=== PATIENT | male | born 1935 | race Caucasian/White ===

== ENCOUNTER 2023-05-22 06:24 | Day surgery (SDC) | payer OTHER ==
[~2023-05-22] VITALS: Ht 185 cm; Wt 86.7 kg
[2023-05-22] VITALS (19 sets, daily range): BP systolic 81–142; BP diastolic 42–81
[~2023-05-22 06:24] MED LIST: COQ1050 MG PO; Crestor20 MG PO; FINA5 PO; LOSA50 PO; METO100ER PO; TAMS.4ER PO; Vitamin B-12100 MCG PO
[2023-05-22] MEDS ORDERED: ASPI81CH PO (07:18)
--- NOTE | 2023-05-22 07:37 | NUR ---
Ambulatory in Day Surgery. Surgical site prepped with 2% Chlorhexidine cloth wipe. History, Chart, Medications and Allergies reviewed before start of procedure. Lungs clear T/O to Auscultation. Pre-Op teaching done. Pt verbalizes understanding. Patient confirms NPO status and agrees with scheduled surgery. Patient reports completing Chlorhexadine shower X2 prior to admission to hospital.
--- NOTE | 2023-05-22 14:05 | NUR ---
PT ARRIVED TO THE ROOM AT APPROXIMATELY 1015. PAIN MANAGED AT TIME OF ARRIVAL. SPINAL ANESTHESIA STILL IN EFFECT. FAMILY AT BEDSIDE FOR SUPPORT. PT EDUCTED TO USE CALL LIGHT. PT EDUCATED TO USE INCENTIVE SPIROMETER AND HE DEMONSTRATED USE. PT RESTING IN BED WITH CALL LIGHT IN REACH.
--- NOTE | 2023-05-22 19:54 | NUR ---
SHIFT SUMMARY PT IS POD#0 FROM L TKA WITH DR. TARANGO. PAIN MANAGED WITH PO PAIN MEDICATION. PT HAS BEEN OOB AND WORKED WITH THERAPY. PT HAS HAD URINARY RETENTION POST OP, PT DECLINED STRAIGHT CATH FOR BLADDER SCAN GREATER THAN 600ML. PT WAS ASSISTED TO THE BATHROOM AND VOIDED 250 ML. PT TOLERATING PO. REPORT GIVEN TO BALAJI BIGGS.
[2023-05-23 04:01] VITALS: BP 102/56
[2023-05-23 05:25] LABS: BASOPHILS ABSOLUTE AUTO 0.03 K/mm3 (0.00-0.23); BASOPHILS PERCENT AUTO 0 % (0-2); EOSINOPHILS ABSOLUTE AUTO 0.06 K/mm3 (0.00-0.68); EOSINOPHILS PERCENT AUTO 1 % (0-6); Hematocrit 34.8 % (37.0-53.0); IMMATURE GRAN ABSOLUTE AUTO 0.04 K/mm3 (0.00-0.10); IMMATURE GRAN PERCENT AUTO 0 % (0-1); LYMPHOCYTES ABSOLUTE AUTO 0.96 K/mm3 (0.84-5.20); LYMPHOCYTES PERCENT AUTO 10 % (21-46); MONOCYTES ABSOLUTE AUTO 0.72 K/mm3 (0.16-1.47); MONOCYTES PERCENT AUTO 8 % (4-13); Mean Corpuscular HGB 31.4 pg (26.0-34.0); Mean Corpuscular HGB Conc 34.5 g/dL (31.5-36.5); Mean Corpuscular Volume 91 fL (80-100); Mean Platelet Volume 10.1 fL (9.1-12.4); NEUTROPHILS PERCENT AUTO 81 % (41-73); Platelet Count 111 K/mm3 (150-400); RDW Standard Deviation 47.3 fL (35.1-46.3); Red Blood Cell Count 3.82 M/mm3 (4.30-5.90); White Blood Cell Count 9.41 K/mm3 (4.00-11.30)
[2023-05-23 05:46] LABS: Bun/Creatinine Ratio 17.5 (12.0-20.0); Calcium, Blood 8.3 mg/dL (8.5-10.1); Creatinine, Blood 1.71 mg/dL (0.60-1.20); Magnesium, Blood 1.8 mg/dL (1.6-2.4); Potassium, Blood 4.5 mmol/L (3.5-5.5)
--- NOTE | 2023-05-23 07:19 | NUR ---
SHIFT SUMMARY POD 1 L TKA. AQUACEL C/D/I, POLAR CESARIO IN PLACE. A&OX4 VERY PLEASANT AND COOPERATIVE.PT AMB TO BATHROOM, TOLERATED WELL AND STEADY. DURING NIGHT, PT STANDS AT BEDSIDE TO USE URINAL. NO ACUTE CHANGES THIS SHIFT. PLANS FOR DISCHARGE TO HOME TODAY.
[2023-05-23 07:34] VITALS: BP 116/53
[2023-05-23] MEDS ORDERED: OXYC5 PO (10:05)
[2023-05-23] MEDS ORDERED: ACET500 PO (10:05)
--- NOTE | 2023-05-23 10:30 | NUR ---
DISCHARGE PT HAS CLEARED THERAPY. PAIN WELL CONTROLLED. EATING, DRINKING, & VOIDING WELL. JUAN DAVID POLAR PACK SENT w/ PT. ESCORTED OUT VIA W/C. HAS PLANS SET FOR SON & TO HELP AT HOME.
== END 2023-05-23 10:30 | disposition home or self-care (01) ==
LOC: ORSCMMR 06:24 → ORD 07:30 → ORSCMMR 07:30 → SURS 10:57 → ORSCMMR 05-23 10:30
PROVIDERS: Orthopaedic Surgery
PROC: 0SRD0JA Replacement of Left Knee Joint with Synthetic Substitute, Uncemented, Open Approach (ICD-10-PCS; principal; 2023-05-22 07:30)
DX: M17.12 Unilateral primary osteoarthritis, left knee (principal); I12.9 Hypertensive chronic kidney disease with stage 1 through stage 4 chronic kidney disease, or unspecified chronic kidney disease; N18.9 Chronic kidney disease, unspecified; E78.5 Hyperlipidemia, unspecified; N40.0 Benign prostatic hyperplasia without lower urinary tract symptoms; I25.10 Atherosclerotic heart disease of native coronary artery without angina pectoris; Z87.891 Personal history of nicotine dependence; Z79.899 Other long term (current) drug therapy
CPT/HCPCS: 36415; 73560-LT; 80048; 83735; 85025; 97110; 97162; A9270; C1776; J0171; J0690; J0735; J1100; J1885; J2250; J2371; J2405; J2704; J2795; J3010; J7120

== ENCOUNTER → 2023-07-07 | Outpatient (CLI) | payer MEDICARE ==
[~2023-07-07] MED LIST changes: +ACET500 PO; +ASPI81CH PO; +OXYC5 PO
[2023-07-07 15:50] LABS: BASOPHILS ABSOLUTE AUTO 0.06 K/mm3 (0.00-0.23); BASOPHILS PERCENT AUTO 1 % (0-2); EOSINOPHILS ABSOLUTE AUTO 0.19 K/mm3 (0.00-0.68); EOSINOPHILS PERCENT AUTO 2 % (0-6); Hematocrit 45.8 % (37.0-53.0); Hemoglobin 15.1 g/dL (13.5-17.5); IMMATURE GRAN ABSOLUTE AUTO 0.02 K/mm3 (0.00-0.10); IMMATURE GRAN PERCENT AUTO 0 % (0-1); LYMPHOCYTES ABSOLUTE AUTO 0.92 K/mm3 (0.84-5.20); LYMPHOCYTES PERCENT AUTO 11 % (21-46); MONOCYTES ABSOLUTE AUTO 0.48 K/mm3 (0.16-1.47); MONOCYTES PERCENT AUTO 6 % (4-13); Mean Corpuscular HGB 30.6 pg (26.0-34.0); Mean Corpuscular Volume 93 fL (80-100); Mean Platelet Volume 10.4 fL (9.1-12.4); NEUTROPHILS PERCENT AUTO 81 % (41-73); Platelet Count 172 K/mm3 (150-400); RDW Coefficient Variation 15.1 % (11.7-14.2); RDW Standard Deviation 51.8 fL (35.1-46.3); Red Blood Cell Count 4.93 M/mm3 (4.30-5.90); White Blood Cell Count 8.77 K/mm3 (4.00-11.30)
== END ==
LOC: LAB 14:33 → LAB SHORT 14:33
PROVIDERS: Student in an Organized Health Care Education/Training Program
DX: M10.9 Gout, unspecified (principal); M00.9 Pyogenic arthritis, unspecified
CPT/HCPCS: 85025; 85651; 86140; 87040

== ENCOUNTER → 2023-09-20 | Outpatient (CLI) | payer MEDICARE, OTHER | LOC: PLD 07:10 → LAB SHORT 07:10 | DX: D48.5 Neoplasm of uncertain behavior of skin (principal) | CPT/HCPCS: 88312 ==

== ENCOUNTER 2024-02-26 05:32 | Inpatient (IN) | payer MEDICARE, OTHER ==
[~2024-02-26] VITALS: Ht 190.5 cm; Wt 87.1 kg
[~2024-02-26 05:32] MED LIST changes: -ASPI81CH PO; +ASPIR 8181 MG PO
[2024-02-26 06:56] LABS: BASOPHILS ABSOLUTE AUTO 0.07 K/mm3 (0.00-0.23); BASOPHILS PERCENT AUTO 1 % (0-2); EOSINOPHILS ABSOLUTE AUTO 0.18 K/mm3 (0.00-0.68); EOSINOPHILS PERCENT AUTO 2 % (0-6); Hematocrit 37.8 % (37.0-53.0); Hemoglobin 12.6 g/dL (13.5-17.5); IMMATURE GRAN PERCENT AUTO 1 % (0-1); LYMPHOCYTES ABSOLUTE AUTO 0.74 K/mm3 (0.84-5.20); LYMPHOCYTES PERCENT AUTO 7 % (21-46); MONOCYTES ABSOLUTE AUTO 0.76 K/mm3 (0.16-1.47); MONOCYTES PERCENT AUTO 7 % (4-13); Mean Corpuscular HGB 29.5 pg (26.0-34.0); Mean Corpuscular HGB Conc 33.3 g/dL (31.5-36.5); Mean Corpuscular Volume 89 fL (80-100); Mean Platelet Volume 9.4 fL (9.1-12.4); NEUTROPHILS ABSOLUTE AUTO 9.37 K/mm3 (1.96-9.15); NEUTROPHILS PERCENT AUTO 84 % (41-73); Platelet Count 194 K/mm3 (150-400); RDW Coefficient Variation 15.4 % (11.7-14.2); RDW Standard Deviation 50.2 fL (35.1-46.3); Red Blood Cell Count 4.27 M/mm3 (4.30-5.90); White Blood Cell Count 11.22 K/mm3 (4.00-11.30)
[2024-02-26 07:14] LABS: Source, Urine Foley catheter
[2024-02-26 07:15] LABS: Albumin, Blood 2.6 g/dL (3.4-5.0); Albumin/Globulin Ratio 0.6 (0.8-1.8); Bilirubin, Total 0.8 mg/dL (0.1-1.0); Calcium, Blood 8.6 mg/dL (8.5-10.1); Creatinine, Blood 1.45 mg/dL (0.60-1.20); Globulin, Blood 4.1 g/dL (2.2-4.0); Potassium, Blood 4.1 mmol/L (3.5-5.5); Total Protein, Blood 6.7 g/dL (6.4-8.2)
[2024-02-26 07:18] LABS: Bilirubin, Urine Neg (Neg); Blood, Urine 4+ (Neg); Glucose Qualitative, Urine Neg (Neg); Ketones, Urine Neg (Neg); Leukocyte Esterase, Urine Neg (Neg); Nitrite, Urine Neg (Neg); Protein, Urine 1+ (Neg); Specific Gravity, Urine 1.015 (1.003-1.022); Urobilinogen, Urine 1+ (Normal)
[2024-02-26 07:31] LABS: Appearance, Urine Hazy (Clear); Color, Urine Yellow (P-Yellow)
[2024-02-26 07:32] LABS: Bacteria Not Seen /hpf; Squamous Epithelial Cells Not Seen /hpf (Few); White Blood Cells, Urine Not Seen /hpf (0-5)
[2024-02-26] MEDS ORDERED: NS 1,000 ML IV SCH (07:45)
[2024-02-26] MEDS ORDERED: Metoprolol Succinate 50 MG TABCR PO ONE (08:25)
[2024-02-26] MEDS ORDERED: Metoprolol Tartrate 1 MG/ML 5 ML VIAL IV ONE ×4 (09:10→10:45)
[2024-02-26] MEDS ORDERED: dilTIAZem HCL 125 MG in Dextrose 5% 100 ML IV SCH (11:25)
[2024-02-26] MEDS ORDERED: Diltiazem HCl 5 MG / ML 5ML Vial IV ONE (11:25)
[2024-02-26] MEDS ORDERED: Acetaminophen 325 MG TABLET PO PRN (11:55)
[2024-02-26] MEDS ORDERED: Ondansetron 4 MG TAB PO PRN (11:55)
[2024-02-26 13:38] VITALS: BP 133/68
[2024-02-26] MEDS ORDERED: ALLO300 PO (13:40)
[2024-02-26] MEDS ORDERED: FEBU40TA PO (13:43)
[2024-02-26] MEDS ORDERED: ECONAZOLE NITRA30 GM TOP (13:44)
[2024-02-26] MEDS ORDERED: ROSUVASTATIN CA20 MG PO (13:49)
[2024-02-26] MEDS ORDERED: Co Q-10300 MG PO (13:51)
[2024-02-26 16:04] VITALS: BP 117/68
--- NOTE | 2024-02-26 18:31 | NUR ---
SHIFT SUMMARY PATIENT ADMITTED TO PCU THIS AFTERNOON. PATIENT ALERT AND ORIENTED x4, ABLE TO MAKE NEEDS KNOWN TO STAFF. PATIENT ON TELE, READING AFIB 80-100s. CARDIZEM GTT INFUSING PER EMAR, SEE FLOWSHEET FOR TITRATIONS. PER HOSPITALIST, PATIENT TO GET 2100 DOSE OF PO METOPROLOL EARLY. PATIENT WITH BIGGS IN PLACE DRAINING YELLOW/MAROON URINE WITH SOME CLOTS. PATIENT REPORTED DIARRHEA AT HOME, PATIENT HAS <10mls OF DIARRHEA THIS SHIFT. FAMILY AT BEDSIDE THROUGHOUT THE DAY. NO OTHER CHANGES THIS SHIFT, WILL REPORT TO DAY SHIFT RN.
[2024-02-26 19:34] VITALS: BP 118/67
[2024-02-26] MEDS ORDERED: Metoprolol Succinate 50 MG TABCR PO SCH (21:00)
[2024-02-26 23:25] VITALS: BP 104/67
[2024-02-27 03:52] VITALS: BP 114/63
[2024-02-27 04:12] LABS: BASOPHILS ABSOLUTE AUTO 0.07 K/mm3 (0.00-0.23); BASOPHILS PERCENT AUTO 1 % (0-2); EOSINOPHILS ABSOLUTE AUTO 0.26 K/mm3 (0.00-0.68); EOSINOPHILS PERCENT AUTO 3 % (0-6); Hematocrit 34.7 % (37.0-53.0); Hemoglobin 11.7 g/dL (13.5-17.5); IMMATURE GRAN ABSOLUTE AUTO 0.04 K/mm3 (0.00-0.10); IMMATURE GRAN PERCENT AUTO 1 % (0-1); LYMPHOCYTES ABSOLUTE AUTO 0.84 K/mm3 (0.84-5.20); LYMPHOCYTES PERCENT AUTO 10 % (21-46); MONOCYTES ABSOLUTE AUTO 0.68 K/mm3 (0.16-1.47); MONOCYTES PERCENT AUTO 8 % (4-13); Mean Corpuscular HGB 29.9 pg (26.0-34.0); Mean Corpuscular HGB Conc 33.7 g/dL (31.5-36.5); Mean Corpuscular Volume 89 fL (80-100); Mean Platelet Volume 9.7 fL (9.1-12.4); NEUTROPHILS ABSOLUTE AUTO 6.75 K/mm3 (1.96-9.15); NEUTROPHILS PERCENT AUTO 78 % (41-73); Platelet Count 201 K/mm3 (150-400); RDW Coefficient Variation 15.3 % (11.7-14.2); RDW Standard Deviation 49.7 fL (35.1-46.3); Red Blood Cell Count 3.91 M/mm3 (4.30-5.90); White Blood Cell Count 8.64 K/mm3 (4.00-11.30)
[2024-02-27 04:38] LABS: Albumin, Blood 2.2 g/dL (3.4-5.0); Albumin/Globulin Ratio 0.6 (0.8-1.8); Bilirubin, Total 0.7 mg/dL (0.1-1.0); Bun/Creatinine Ratio 16.7 (12.0-20.0); Creatinine, Blood 1.44 mg/dL (0.60-1.20); Globulin, Blood 3.5 g/dL (2.2-4.0); Magnesium, Blood 1.7 mg/dL (1.6-2.4); Potassium, Blood 4.3 mmol/L (3.5-5.5); Total Protein, Blood 5.7 g/dL (6.4-8.2)
--- NOTE | 2024-02-27 06:15 | NUR ---
SHIFT SUMMARY PATIENT ALERT AND ORIENTED X4. HAD NO COMPLAINTS OF PAIN OR SHORTNESS OF BREATH. CURRENTLY ON ROOM AIR WITH SPO2 >90%. VITAL SIGNS STABLE, AFIB 90'S ON TELE. NO ACUTE ISSUES NOTED OVERNIGHT. WILL CONTINUE TO MONITOR. CALL LIGHT WITHIN REACH.
--- NOTE | 2024-02-27 07:30 | NUR ---
ASSUMED CARE: REPORT RECEIVED FROM DIAN HUDSON. ASSUMED CARE OF THIS PT AT APPROX 0700. ON ASSESSMENT, THE PT IS AWAKE, A&O TO ALL. EUCEDA, HAS BEEN AMBULATORY IN ROOM PER REPORT. DENIES PAIN, CHEST PRESSURE OR SOB THIS AM. LS CLEAR T/O, PT ON RA W/ O2 SATS > 95%. MONITOR SHOWS AFLUTTER W/ HR 90-110s, BP STABLE. PT STS HAVING SMALL AMNTS DIARRHEA SINCE PRIOR TO ADMISSION, PER PT, THIS IS IMPROVING. BIGGS PATENT/ DRAINING GAUTAM URINE - IN PLACE FOR ACUTE RETENTION AT TIME OF ADMIT. SKIN CONDITION OVERALL INTACT, PT REPOSITIONS SELF PRN FOR COMFORT. WILL CONTINUE TO MONITOR & UPDATE NEEDED.
[2024-02-27 07:31] VITALS: BP 129/82
[2024-02-27] MEDS ORDERED: Enoxaparin 40 MG/0.4 ML SYR SC SCH (09:00)
--- NOTE | 2024-02-27 09:15 | NUR ---
DR PARRISH: PROVIDER HAS BEEN AT BEDSIDE TO EVAL PT THIS AM & PLACED DISCHARGE TO HOME ORDERS. THIS RN HAS CLARIFIED THAT THE PT WILL BE DISCHARGING HOME WITH THE BIGGS CATHETER THAT IS CURRENTLY IN PLACE FOR ACUTE RETENTION R/T BPH.
[2024-02-27] MEDS ORDERED: XARELTO10 M1 PO (09:26)
--- NOTE | 2024-02-27 11:15 | NUR ---
DISCHARGE TO HOME: THIS RN HAS REVIEWED DISCHARGE & INDWELLING URINARY CATHETER CARE INSTRUCTIONS W/ THE PT. HE VERBLIZES HAVING NO ADDITIONAL QUESTIONS AT THIS TIME & STS THAT HE ALREADY HAS A FOLLOW-UP APPOINTMENT SCHEDULED W/ HIS PCP IN THE COMING WEEK. YARED PCT, HAS REMOVED THE PT's PIV & ALL MONITORS. HE HAS BEEN TAKEN OUT VIA WC AT APPROX 1110. ALL BELONGINGS & DISCHARGE PACKET HAVE BEEN TAKEN OUT W/ THE PT AT THAT TIME.
== END 2024-02-27 11:28 | disposition home or self-care (01) | DRG 310 ==
LOC: ER 05:32 → PCU 11:54
PROVIDERS: Student in an Organized Health Care Education/Training Program; ADMIT Internal Medicine
PROC: 0T9B70Z Drainage of Bladder with Drainage Device, Via Natural or Artificial Opening (ICD-10-PCS; principal; 2024-02-26)
DX: I48.91 Unspecified atrial fibrillation (principal); N18.31 Chronic kidney disease, stage 3a; D63.1 Anemia in chronic kidney disease; E55.9 Vitamin D deficiency, unspecified; M10.9 Gout, unspecified; Z87.442 Personal history of urinary calculi; E78.5 Hyperlipidemia, unspecified; I12.9 Hypertensive chronic kidney disease with stage 1 through stage 4 chronic kidney disease, or unspecified chronic kidney disease; N40.1 Benign prostatic hyperplasia with lower urinary tract symptoms; F10.90 Alcohol use, unspecified, uncomplicated; R33.8 Other retention of urine; I25.10 Atherosclerotic heart disease of native coronary artery without angina pectoris; Z98.890 Other specified postprocedural states; Z95.5 Presence of coronary angioplasty implant and graft; Z96.652 Presence of left artificial knee joint; Z87.891 Personal history of nicotine dependence; Z88.0 Allergy status to penicillin; Z79.82 Long term (current) use of aspirin; Z79.899 Other long term (current) drug therapy; M54.50 Low back pain, unspecified; G89.29 Other chronic pain; I25.2 Old myocardial infarction; I27.20 Pulmonary hypertension, unspecified; M19.90 Unspecified osteoarthritis, unspecified site; Z86.79 Personal history of other diseases of the circulatory system; Z87.19 Personal history of other diseases of the digestive system; I45.10 Unspecified right bundle-branch block
CPT/HCPCS: 36415; 51702; 51798; 80053; 81001; 83735; 85025; 93005; 93010; 94762; 96361-59; 96374-59; 96375-59; 96376-59; 99285-25; A9270; J1650; J7030

== ENCOUNTER 2024-03-27 08:08 | Emergency (ER) | payer MEDICARE, OTHER ==
[~2024-03-27] VITALS: Ht 188 cm; Wt 81.7 kg
[~2024-03-27 08:08] MED LIST changes: +ALLO300 PO; +Co Q-10300 MG PO; +ECONAZOLE NITRA30 GM TOP; +FEBU40TA PO; +ROSUVASTATIN CA20 MG PO; +XARELTO10 M1 PO
[2024-03-27 09:26] VITALS: BP 135/77
== END 2024-03-27 09:26 | disposition home or self-care (01) ==
LOC: ER 08:08
DX: R33.9 Retention of urine, unspecified (principal); I12.9 Hypertensive chronic kidney disease with stage 1 through stage 4 chronic kidney disease, or unspecified chronic kidney disease; N18.30 Chronic kidney disease, stage 3 unspecified; I25.2 Old myocardial infarction; E78.5 Hyperlipidemia, unspecified; M19.90 Unspecified osteoarthritis, unspecified site; Z87.891 Personal history of nicotine dependence; Z79.82 Long term (current) use of aspirin; Z79.899 Other long term (current) drug therapy; Z88.0 Allergy status to penicillin
CPT/HCPCS: 51702; 99283-25

== ENCOUNTER 2024-04-28 14:29 | Observation (INO) | payer MEDICARE, OTHER ==
[~2024-04-28] VITALS: Ht 190.5 cm; Wt 79.9 kg
[~2024-04-28 14:29] MED LIST changes: -METO100ER PO
[2024-04-28 14:56] LABS: BASOPHILS ABSOLUTE AUTO 0.07 K/mm3 (0.00-0.23); BASOPHILS PERCENT AUTO 1 % (0-2); EOSINOPHILS ABSOLUTE AUTO 0.22 K/mm3 (0.00-0.68); EOSINOPHILS PERCENT AUTO 4 % (0-6); Hematocrit 41.8 % (37.0-53.0); Hemoglobin 13.5 g/dL (13.5-17.5); IMMATURE GRAN ABSOLUTE AUTO 0.02 K/mm3 (0.00-0.10); IMMATURE GRAN PERCENT AUTO 0 % (0-1); LYMPHOCYTES PERCENT AUTO 18 % (21-46); MONOCYTES ABSOLUTE AUTO 0.44 K/mm3 (0.16-1.47); MONOCYTES PERCENT AUTO 7 % (4-13); Mean Corpuscular HGB 29.2 pg (26.0-34.0); Mean Corpuscular HGB Conc 32.3 g/dL (31.5-36.5); Mean Corpuscular Volume 91 fL (80-100); Mean Platelet Volume 8.9 fL (9.1-12.4); NEUTROPHILS ABSOLUTE AUTO 4.23 K/mm3 (1.96-9.15); NEUTROPHILS PERCENT AUTO 70 % (41-73); Platelet Count 219 K/mm3 (150-400); RDW Coefficient Variation 16.4 % (11.7-14.2); RDW Standard Deviation 54.6 fL (35.1-46.3); Red Blood Cell Count 4.62 M/mm3 (4.30-5.90); White Blood Cell Count 6.08 K/mm3 (4.00-11.30)
[2024-04-28 15:20] LABS: Albumin, Blood 3.5 g/dL (3.4-5.0); Albumin/Globulin Ratio 0.9 (0.8-1.8); Bilirubin, Total 0.7 mg/dL (0.1-1.0); Bun/Creatinine Ratio 15.7 (12.0-20.0); Creatinine, Blood 1.59 mg/dL (0.60-1.20); Globulin, Blood 3.7 g/dL (2.2-4.0); Potassium, Blood 4.7 mmol/L (3.5-5.5); Total Protein, Blood 7.2 g/dL (6.4-8.2)
[2024-04-28] MEDS ORDERED: Furosemide 10 MG / ML 2ML Vial IV ONE (16:50)
[2024-04-28] MEDS ORDERED: Acetaminophen 325 MG TABLET PO PRN (18:20)
[2024-04-28] MEDS ORDERED: CITALOPRAM HBR10 MG PO (19:13)
[2024-04-28 20:15] VITALS: BP 119/61
[2024-04-28] MEDS ORDERED: Apixaban 5 MG Tab PO SCH (21:00)
[2024-04-29 02:39] VITALS: BP 97/61
--- NOTE | 2024-04-29 06:23 | NUR ---
SHIFT SUMMARY PT A&OX4 AND ANSWERS QUESTIONS APPROPRIATELY. PT ARRIVED ON UNIT AROUND 2014 AND AMBULATED INDEPENDENTLY TO THE BED. PT ORIENTED TO ROOM AND UNIT, PT EDUCATION PROVIDED ON HOSPITAL POLICY. PT ON TELEMETRY RUNNING BRADYCARDIC WITH SYMPTOMS. PT NOT CURRENTLY EXPERIENCING SYMPTOMS AND IS RESTING IN BED WITH EYES CLOSED AND RESPIRATIONS EVEN AND UNLABORED. REMAINING VSS. NO ACUTE EVENTS AT THIS TIME. PT REPOSITIONED INDEPENDENTLY. PT LEFT IN A POSITION OF SAFETY WITH FALL PRECAUTIONS IN PLACE AND CALL LIGHT IN REACH.
[2024-04-29 07:38] VITALS: BP 115/51
[2024-04-29] MEDS ORDERED: ERGO400 PO (08:19)
--- NOTE | 2024-04-29 08:26 | NUR ---
DR NEGRETE IN TO SEE PT.
[2024-04-29] MEDS ORDERED: Metoprolol Succinate 50 MG TABCR PO SCH (09:00)
[2024-04-29] MEDS ORDERED: Allopurinol 300 MG Tab PO SCH (09:00)
[2024-04-29] MEDS ORDERED: Losartan Potassium 50 MG Tab PO SCH (09:00)
[2024-04-29] MEDS ORDERED: Aspirin 81 MG TabEC PO SCH (09:00)
[2024-04-29] MEDS ORDERED: Misc. Capsule PO SCH (09:00)
[2024-04-29] MEDS ORDERED: Citalopram Hydrobromide 10 MG TAB PO SCH (09:00)
[2024-04-29 14:47] VITALS: BP 119/66
--- NOTE | 2024-04-29 18:26 | NUR ---
SUMMARY NO ACUTE CHANGES T/O SHIFT. PT'S HR CONTINUES TO BE BEVERLY IN FORTIES. PT REPORTS "FEELS GREAT" BUT TIRES EASILY WITH EXERTION. BIGGS CATH DRAINING YELLOW URINE. INDEPENDENT IN ROOM. CALL LIGHT IN REACH.
[2024-04-29 19:11] VITALS: BP 96/52
[2024-04-29] MEDS ORDERED: Tamsulosin HCl 0.4 MG Cap PO SCH (21:00)
[2024-04-29 21:06] VITALS: BP 106/51
[2024-04-30 03:02] VITALS: BP 96/49
[2024-04-30 05:07] LABS: BASOPHILS ABSOLUTE AUTO 0.06 K/mm3 (0.00-0.23); BASOPHILS PERCENT AUTO 1 % (0-2); EOSINOPHILS ABSOLUTE AUTO 0.27 K/mm3 (0.00-0.68); EOSINOPHILS PERCENT AUTO 4 % (0-6); Hematocrit 35.6 % (37.0-53.0); Hemoglobin 11.3 g/dL (13.5-17.5); IMMATURE GRAN ABSOLUTE AUTO 0.02 K/mm3 (0.00-0.10); IMMATURE GRAN PERCENT AUTO 0 % (0-1); LYMPHOCYTES ABSOLUTE AUTO 1.35 K/mm3 (0.84-5.20); LYMPHOCYTES PERCENT AUTO 22 % (21-46); MONOCYTES ABSOLUTE AUTO 0.35 K/mm3 (0.16-1.47); MONOCYTES PERCENT AUTO 6 % (4-13); Mean Corpuscular HGB 28.7 pg (26.0-34.0); Mean Corpuscular HGB Conc 31.7 g/dL (31.5-36.5); Mean Corpuscular Volume 90 fL (80-100); Mean Platelet Volume 9.4 fL (9.1-12.4); NEUTROPHILS ABSOLUTE AUTO 4.07 K/mm3 (1.96-9.15); NEUTROPHILS PERCENT AUTO 67 % (41-73); Platelet Count 164 K/mm3 (150-400); RDW Coefficient Variation 16.1 % (11.7-14.2); RDW Standard Deviation 53.1 fL (35.1-46.3); Red Blood Cell Count 3.94 M/mm3 (4.30-5.90); White Blood Cell Count 6.12 K/mm3 (4.00-11.30)
[2024-04-30 05:43] LABS: Bun/Creatinine Ratio 17.8 (12.0-20.0); Creatinine, Blood 1.85 mg/dL (0.60-1.20); Potassium, Blood 4.3 mmol/L (3.5-5.5)
--- NOTE | 2024-04-30 06:23 | NUR ---
SHIFT SUMMARY PT A&OX4 AND ANSWERS QUESTIONS APPROPRIATELY. PT HR REMAINS BRADYCARDIC IN THE 40S THROUGHOUT MOST OF THE NIGHT, OCCASIONALY DIPPING TO 39 BEFORE RETURNING TO THE 40S. NO SYMPTOMS OF BRADYCARDIA, PT RESTING PEACEFULLY IN BED WITH EYES CLOSED AND RESPIRATIONS EVEN AND UNLABORED. REMAINING VSS. LOSARTAN HELD DUE TO PT VERBALIZATION OF ONLY TAKING IT DAILY. RX RECONCILIATION SHOWS PT TAKES LOSARTAN DAILY. NO ACUTE EVENTS AT THIS TIME. PT REPOSITIONED INDEPENDENTLY. FALL PRECAUTIONS IN PLACE AND CALL LIGHT IN REACH.
[2024-04-30 07:22] VITALS: BP 120/60
[2024-04-30] MEDS ORDERED: Allopurinol 100 MG Tab PO SCH (09:00)
[2024-04-30 10:49] VITALS: BP 110/56
[2024-04-30 14:22] VITALS: BP 108/50
[2024-04-30] MEDS ORDERED: ALLO100 PO (16:05)
[2024-05-02] MEDS ORDERED: Aspir 8181 MG PO (15:58)
[2024-05-02] MEDS ORDERED: FEBU40TA PO (15:59)
[2024-05-02] MEDS ORDERED: COENZYME Q10100 MG PO (15:59)
== END 2024-04-30 17:02 | disposition home or self-care (01) ==
LOC: ER 14:29 → MEDS 14:30
PROVIDERS: Family Medicine; Physician Assistant; ADMIT Internal Medicine Endocrinology, Diabetes & Metabolism
DX: I48.92 Unspecified atrial flutter (principal); R00.1 Bradycardia, unspecified; I25.10 Atherosclerotic heart disease of native coronary artery without angina pectoris; I12.9 Hypertensive chronic kidney disease with stage 1 through stage 4 chronic kidney disease, or unspecified chronic kidney disease; N18.30 Chronic kidney disease, stage 3 unspecified; R73.03 Prediabetes; N40.0 Benign prostatic hyperplasia without lower urinary tract symptoms; M10.9 Gout, unspecified; I25.2 Old myocardial infarction; R33.9 Retention of urine, unspecified; Z88.0 Allergy status to penicillin; Z79.899 Other long term (current) drug therapy; Z87.891 Personal history of nicotine dependence; Z96.89 Presence of other specified functional implants
CPT/HCPCS: 36415; 71046; 71260; 80048; 80053; 83690; 83880; 84484; 85025; 85379; 93005; 93010; 96374; 99285-25; A9270; G0378; J1940; Q9967

== ENCOUNTER 2024-05-03 09:58 | Day surgery (SDC) | payer MEDICARE, OTHER ==
[~2024-05-03] VITALS: Ht 188 cm; Wt 82.0 kg
[2024-05-03] VITALS (8 sets, daily range): BP systolic 113–148; BP diastolic 71–103
[~2024-05-03 09:58] MED LIST changes: +ALLO100 PO; +Aspir 8181 MG PO; +CITALOPRAM HBR10 MG PO; +COENZYME Q10100 MG PO; +ERGO400 PO
[2024-05-03] MEDS ORDERED: Clindamycin 600mg in D5W 50 ML IV ONE (13:04)
[2024-05-03] MEDS ORDERED: NS 1,000 ML IV ONE ×2 (13:04→13:06)
[2024-05-03] MEDS ORDERED: FentaNYL Citrate 50 MCG/ML 2 ML Injection ONE (13:04)
[2024-05-03] MEDS ORDERED: Midazolam HCl 1MG / ML 2ML Vial ONE (13:04)
[2024-05-03] MEDS ORDERED: Heparin Sodium 1000 Units/ML 10ML MDV ONE (13:05)
[2024-05-03] MEDS ORDERED: Vancomycin HCl 1000 MG ADDvantage ONE (13:05)
--- NOTE | 2024-05-03 14:12 | NUR ---
PATIENT AMBULATING TO RESTROOM WITHOUT DIFFICULTY. L GROIN SITE C/D/I SOFT/NONTENDER, NO EVIDENCE OF BLEEDING. VSS ON RA. PATIENT TOLERATING PO INTAKE WELL.
--- NOTE | 2024-05-03 15:45 | NUR ---
Pt back to recovery room. Awake and alert, Dr Blair in to speak to pt and family. Ice pack applied. dressing clean dry and intact.
[2024-05-03] MEDS ORDERED: ELIQUIS2.5 MG PO (16:38)
[2024-05-03] MEDS ORDERED: METO100ER PO (16:41)
--- NOTE | 2024-05-03 18:03 | NUR ---
PT VERBALIZE D/C INSTRUCTIONS. PT DRESSED AFTER OKAY BY DR SEYMOUR. IV D/C AND CATHETER INTACT. PT WHEELED OUT TO FAMILY.
== END 2024-05-03 23:11 | disposition home or self-care (01) ==
LOC: MHTC 09:58
DX: I48.91 Unspecified atrial fibrillation (principal); I48.4 Atypical atrial flutter; I45.2 Bifascicular block; I25.10 Atherosclerotic heart disease of native coronary artery without angina pectoris; I12.9 Hypertensive chronic kidney disease with stage 1 through stage 4 chronic kidney disease, or unspecified chronic kidney disease; N18.31 Chronic kidney disease, stage 3a; E78.5 Hyperlipidemia, unspecified; I71.40 Abdominal aortic aneurysm, without rupture, unspecified; N40.0 Benign prostatic hyperplasia without lower urinary tract symptoms; Z87.891 Personal history of nicotine dependence; Z79.01 Long term (current) use of anticoagulants; Z79.82 Long term (current) use of aspirin; Z79.899 Other long term (current) drug therapy; Z88.0 Allergy status to penicillin
CPT/HCPCS: 33207; 71046; 99152; 99153; C1786; C1894; C1898; J1644; J2250; J3010; J3370; J7030; J7040; Q9967

== ENCOUNTER 2024-05-10 17:03 | Emergency (ER) | payer MEDICARE, OTHER ==
[~2024-05-10] VITALS: Ht 188 cm; Wt 81.7 kg
[~2024-05-10 17:03] MED LIST changes: +ELIQUIS2.5 MG PO; +METO100ER PO
[2024-05-10 17:09] VITALS: BP 148/914
[2024-05-10 17:39] LABS: BASOPHILS ABSOLUTE AUTO 0.06 K/mm3 (0.00-0.23); BASOPHILS PERCENT AUTO 1 % (0-2); EOSINOPHILS ABSOLUTE AUTO 0.25 K/mm3 (0.00-0.68); EOSINOPHILS PERCENT AUTO 5 % (0-6); Hematocrit 39.5 % (37.0-53.0); Hemoglobin 13.1 g/dL (13.5-17.5); IMMATURE GRAN ABSOLUTE AUTO 0.01 K/mm3 (0.00-0.10); IMMATURE GRAN PERCENT AUTO 0 % (0-1); LYMPHOCYTES ABSOLUTE AUTO 1.08 K/mm3 (0.84-5.20); LYMPHOCYTES PERCENT AUTO 23 % (21-46); MONOCYTES ABSOLUTE AUTO 0.39 K/mm3 (0.16-1.47); MONOCYTES PERCENT AUTO 9 % (4-13); Mean Corpuscular HGB 29.4 pg (26.0-34.0); Mean Corpuscular HGB Conc 33.2 g/dL (31.5-36.5); Mean Corpuscular Volume 89 fL (80-100); Mean Platelet Volume 9.3 fL (9.1-12.4); NEUTROPHILS ABSOLUTE AUTO 2.82 K/mm3 (1.96-9.15); NEUTROPHILS PERCENT AUTO 61 % (41-73); Platelet Count 136 K/mm3 (150-400); RDW Coefficient Variation 16.2 % (11.7-14.2); RDW Standard Deviation 53.1 fL (35.1-46.3); Red Blood Cell Count 4.46 M/mm3 (4.30-5.90); White Blood Cell Count 4.61 K/mm3 (4.00-11.30)
[2024-05-10 17:56] LABS: Albumin, Blood 3.5 g/dL (3.4-5.0); Albumin/Globulin Ratio 1.1 (0.8-1.8); Bilirubin, Total 0.8 mg/dL (0.1-1.0); Bun/Creatinine Ratio 18.3 (12.0-20.0); Calcium, Blood 9.1 mg/dL (8.5-10.1); Creatinine, Blood 1.42 mg/dL (0.60-1.20); Globulin, Blood 3.3 g/dL (2.2-4.0); Potassium, Blood 4.4 mmol/L (3.5-5.5); Total Protein, Blood 6.8 g/dL (6.4-8.2)
[2024-05-10 21:21] LABS: Source, Urine Clean Catch
[2024-05-10 21:25] LABS: Appearance, Urine Hazy (Clear); Bilirubin, Urine Neg (Neg); Blood, Urine 5+ (Neg); Color, Urine Yellow (P-Yellow); Glucose Qualitative, Urine Neg (Neg); Ketones, Urine Neg (Neg); Leukocyte Esterase, Urine 3+ (Neg); Nitrite, Urine Neg (Neg); Protein, Urine 2+ (Neg); Specific Gravity, Urine 1.015 (1.003-1.022); Urobilinogen, Urine 1+ (Normal)
[2024-05-10 21:33] LABS: Bacteria Many /hpf; Mucus Light (0-Heavy); Red Blood Cells, Urine 50-100 /hpf (0-2); Squamous Epithelial Cells Rare /hpf (Few); White Blood Cells, Urine TNTC /hpf (0-5)
[2024-05-10] MEDS ORDERED: CefTRIAXone Sodium 1,000 MG in NS 100 ML IV ONE (22:05)
== END 2024-05-10 22:30 | disposition left against medical advice (07) ==
LOC: ER 17:03
PROVIDERS: Physician Assistant; Student in an Organized Health Care Education/Training Program
DX: R10.9 Unspecified abdominal pain (principal); Z53.29 Procedure and treatment not carried out because of patient's decision for other reasons
CPT/HCPCS: 74177; 80053; 81001; 85025; 99282-25; Q9967

== ENCOUNTER → 2024-05-20 | Outpatient (CLI) | payer MEDICARE, OTHER | LOC: LAB 12:22 → LAB SHORT 12:22 | DX: N20.0 Calculus of kidney (principal) | CPT/HCPCS: 87077; 87086; 87186 ==

== ENCOUNTER 2024-06-27 11:04 | Day surgery (SDC) | payer MEDICARE, OTHER ==
[~2024-06-27] VITALS: Ht 188 cm; Wt 80.0 kg
[2024-06-27] VITALS (9 sets, daily range): BP systolic 112–144; BP diastolic 73–84
[2024-06-27] MEDS ORDERED: NS 1,000 ML IV ONE ×2 (12:24→12:40)
[2024-06-27] MEDS ORDERED: Midazolam HCl 1MG / ML 2ML Vial ONE ×2 (12:36→13:47)
[2024-06-27] MEDS ORDERED: FentaNYL Citrate 50 MCG/ML 2 ML Injection ONE ×2 (12:37→13:48)
[2024-06-27] MEDS ORDERED: NS 250 ML IV ONE (12:37)
[2024-06-27] MEDS ORDERED: NS 100 ML IV ONE (12:39)
[2024-06-27] MEDS ORDERED: Heparin Sodium 1000 Units/ML 10ML MDV ONE (12:40)
[2024-06-27] MEDS ORDERED: Verapamil HCL 2.5 MG/ML 2ML Injection ONE (13:34)
[2024-06-27] MEDS ORDERED: Nitroglycerin 2 MG/20 ML BTL ONE (13:34)
--- NOTE | 2024-06-27 16:00 | NUR ---
PATIENT ARRIVED BACK TO RECOVERY ROOM. R GROIN SITE WITH ANGIO SEAL SOFT/NONTENDER, NO EVIDENCE OF BLEEDING. VSS ON RA. PATIENT CONVERSING APPROPRIATELY.
--- NOTE | 2024-06-27 16:50 | NUR ---
HOB FLAT. R GROIN SITE C/D/I SOFT/NONTENDER, NO EVIDENCE OF BLEEDING. VSS ON RA. PATIENT TOLERATING PO INTAKE WELL.
--- NOTE | 2024-06-27 16:59 | NUR ---
HOB ELEVATED 30 DEGREES. R GROIN SITE C/D/I SOFT/NONTENDER, NO EVIDENCE OF BLEEDING. VSS ON RA. PATIENT TOLERATING PO INTAKE WELL.
--- NOTE | 2024-06-27 17:44 | NUR ---
R GROIN SITE C/D/I SOFT/NONTENDER, NO EVIDENCE OF BLEEDING. VSS ON RA. PATIENT CONVERSING APPROPRIATELY. PATIENT TOLERATING PO INTAKE WELL AND VOIDING WITHOUT DIFFICULTY USING CATHETER
--- NOTE | 2024-06-27 18:00 | NUR ---
MD PRESENT AT BEDSIDE DISCUSSING PLANS FOR NEXT PROCEDURE
--- NOTE | 2024-06-27 18:23 | NUR ---
PATIENT DISCHARGED HOME AT THIS TIME. DISCHARGE INSTRUCTIONS REVIEWED WITH PATIENT AND FAMILY AT BEDSIDE. ALL QUESTIONS WERE ANSWERED. R GROIN SITE C/D/I SOFT/NONTENDER, NO EVIDENCE OF BLEEDING. VSS ON RA. PATIENT AMBULATING AND GETTING DRESSED WITHOUT DIFFICULTY. PIV REMOVED WITHOUT DIFFICULTY,CATHETER INTACT. PATIENT WHEELED TO HOSPITAL ENTRANCE AND SONBUDDY ABLE TO TRANSPORT PATIENT HOME
== END 2024-06-27 23:28 | disposition home or self-care (01) ==
LOC: MHTC 11:04
DX: N40.1 Benign prostatic hyperplasia with lower urinary tract symptoms (principal); I10 Essential (primary) hypertension; I12.9 Hypertensive chronic kidney disease with stage 1 through stage 4 chronic kidney disease, or unspecified chronic kidney disease; N18.30 Chronic kidney disease, stage 3 unspecified; I25.2 Old myocardial infarction; E78.5 Hyperlipidemia, unspecified; I25.10 Atherosclerotic heart disease of native coronary artery without angina pectoris; Z79.899 Other long term (current) drug therapy; Z88.0 Allergy status to penicillin; Z79.01 Long term (current) use of anticoagulants
CPT/HCPCS: 37242; 75716; 75774; 76937; 99152; 99153; C1760; C1769; C1887; C1889; C1894; J1644; J2250; J3010; J7030; J7050; Q9967

== ENCOUNTER 2024-07-09 06:38 | Day surgery (SDC) | payer OTHER ==
[~2024-07-09] VITALS: Ht 190.5 cm; Wt 83.1 kg
[~2024-07-09 06:38] MED LIST changes: +Povidone-Iodine 450 DROP/30 ML Solution ONE; +Tetracaine HCl/Pf 0.5% Opth Soln 4 ml ONE
[2024-07-09] MEDS ORDERED: Lidocaine HCl/Pf 1% 5 ML VIAL ONE (06:43)
--- NOTE | 2024-07-09 07:13 | NUR ---
07/09/24 0713 Edna Yun CALL LIGHT WITHIN REACH. TETRACAINE IN RIGHT EYE AT 0701 AND PLEDGETT IN AT 0703
[2024-07-09] MEDS ORDERED: Midazolam HCl 1MG / ML 2ML Vial ONE (07:49)
[2024-07-09] MEDS ORDERED: Moxifloxacin HCL 0.5 MG/0.1 ML 0.4MLSYR RIGHTEYE SCH (07:50)
[2024-07-09] MEDS ORDERED: Balanced Salt Epinephrine Irrigation Solution 500 mL IR SCH (07:50)
[2024-07-09] MEDS ORDERED: PHENYLEPHRINE\\TROPICAMIDE\\TETRACAINE OPHTHALMIC DILATING SOLN RIGHTEYE PRN (07:50)
[2024-07-09] MEDS ORDERED: Lidocaine HCl/Pf 1% 5 ML VIAL XX SCH (07:50)
[2024-07-09] MEDS ORDERED: Povidone-Iodine 450 DROP/30 ML Solution RIGHTEYE SCH (07:50)
[2024-07-09 08:37] VITALS: BP 129/67
== END 2024-07-09 08:30 | disposition home or self-care (01) ==
LOC: ORSCSDS 06:38
PROVIDERS: Student in an Organized Health Care Education/Training Program
PROC: 08RJ3JZ Replacement of Right Lens with Synthetic Substitute, Percutaneous Approach (ICD-10-PCS; principal; 2024-07-09 08:00)
DX: H25.813 Combined forms of age-related cataract, bilateral (principal); H21.81 Floppy iris syndrome; I12.9 Hypertensive chronic kidney disease with stage 1 through stage 4 chronic kidney disease, or unspecified chronic kidney disease; N18.9 Chronic kidney disease, unspecified; H40.009 Preglaucoma, unspecified, unspecified eye; I25.2 Old myocardial infarction; I25.10 Atherosclerotic heart disease of native coronary artery without angina pectoris; Z87.891 Personal history of nicotine dependence; Z79.899 Other long term (current) drug therapy
CPT/HCPCS: J2003; J2250; V2632

== ENCOUNTER → 2025-07-21 | Outpatient (CLI) | payer MEDICARE, OTHER ==
[~2025-07-21] MED LIST changes: -Povidone-Iodine 450 DROP/30 ML Solution ONE; -Tetracaine HCl/Pf 0.5% Opth Soln 4 ml ONE
[2025-07-21 20:56] LABS: Source, Urine Clean Catch
[2025-07-21 21:50] LABS: White Blood Cells, Urine TNTC /hpf (0-5); Yeast/Fungi Urine Few /hpf
== END ==
LOC: LAB SHORT 13:34 → LAB 13:34
PROVIDERS: Urology
DX: R31.9 Hematuria, unspecified (principal); R82.90 Unspecified abnormal findings in urine
CPT/HCPCS: 81015; 87077; 87086; 87186